=== PATIENT | female | born 1955 | race Caucasian/White ===

== ENCOUNTER 2017-06-20 17:05 | Emergency (ER) | payer BC, SELFPAY ==
[2017-06-20] MEDS ORDERED: cloNIDine 0.1 MG TAB ONE (17:38)
[2017-06-20] MEDS ORDERED: Metoprolol Tartrate 50 MG TAB ONE (18:22)
[2017-06-20] MEDS ORDERED: Amlodipine 5 MG TAB ONE (18:22)
== END 2017-06-20 19:10 | disposition home or self-care (01) ==
LOC: MADERS 17:05
DX: I10 Essential (primary) hypertension (principal); E78.5 Hyperlipidemia, unspecified; F32.9 Major depressive disorder, single episode, unspecified; Z79.899 Other long term (current) drug therapy
CPT/HCPCS: 99283

== ENCOUNTER 2017-07-18 14:30 | Emergency (ER) | payer SELFPAY ==
[~2017-07-18 14:30] MED LIST: Sodium Chloride 0.9% 1,000 ML BAG ONE
[2017-07-18 14:57] LABS: ALT (SGPT) 21 U/L (8-55); AST (SGOT) 23 U/L (5-34); Albumin 3.9 g/dL (3.4-4.8); Alkaline Phosphatase 81 U/L (40-150); Anion Gap 17 mmol/L (10-20); BUN (Urea Nitrogen) 11 mg/dL (9.8-20.1); Bilirubin, Total 0.2 mg/dL (0.2-1.2); CK (CPK) 189 U/L (29-168); Calc. Creatinine Clearance 0 mL/min (70-130); Calcium 8.9 mg/dL (7.8-10.44); Carbon Dioxide 20 mmol/L (23-31); Chloride 105 mmol/L (98-107); Estimated GFR-MDRD 61; Globulin 3.4 g/dL (2.4-3.5); Glucose 110 mg/dL (80-115); Lipase 59 U/L (8-78); Potassium 3.8 mmol/L (3.5-5.1); Protein, Total 7.3 g/dL (6.0-8.3); Sodium 138 mmol/L (136-145)
[2017-07-18 15:00] LABS: CKMB 1.7 ng/mL (0-6.6); Troponin I Less than 0.010 ng/mL (< 0.028)
--- NOTE | 2017-07-18 15:00 | RAD ---
CHEST 2 VIEWS: Date: 07/18/17 HISTORY: Cough. COMPARISON: 12/27/10. FINDINGS: Cardiac silhouette and pulmonary vasculature are unremarkable. Mediastinum is midline. Calcified gran ulomata are consistent with healed granulomatous disease. There is no confluent air space consolidati on, pneumothorax, or pleural fluid evident. Metallic anchor overlies the right humeral head. monitor tech leads overlie the chest. IMPRESSION: No active cardiopulmonary abnormalities are demonstrated. POS: [facility]
[2017-07-18 15:23] LABS: Hemoglobin 15.1 g/dL (12.0-16.0); Mean Corpuscular Hemoglobin 30.2 pg (27.0-31.0); Mean Corpuscular Volume 91.5 fl (81.0-99.0); Mean Platelet Volume 6.7 fL (7.4-10.4); Platelet Count 240 thou/uL (130-400); RBC Distribution Width 11.8 % (11.5-14.5); Red Blood Cell (RBC) Count 4.99 mill/uL (4.20-5.40); White Blood Cell (WBC) Count 4.9 thou/uL (4.8-10.8)
[2017-07-18 15:24] LABS: Band 1 % (5-11); Eosinophils 1 % (0-10); Lymphocytes 19 % (21-51); MDiff Complete? YES; Monocytes 13 % (0-10); Neutrophil 42 % (42-75); PLT Morphology Comment Appears Adequate; RBC Morphology Normal; Reactive Lymphocytes 24 % (0-10)
[2017-07-18 16:42] LABS: Bilirubin Negative (Negative); Blood, Urine Negative (Negative); Clarity Clear (Clear); Glucose, Urine (Dipstick) Negative (Negative); Leukocyte Negative (Negative); Nitrite Negative (Negative); Protein, Urine (Dipstick) Negative (Neg-Trace); Specific Gravity, Urine 1.015 (1.005-1.030); Urobilinogen 0.2 mg/dL (0.2-1.0)
== END 2017-07-18 16:31 | disposition home or self-care (01) ==
LOC: MADERS 14:30
DX: J18.9 Pneumonia, unspecified organism (principal); E86.0 Dehydration; R55 Syncope and collapse; I10 Essential (primary) hypertension; F32.9 Major depressive disorder, single episode, unspecified; Z79.82 Long term (current) use of aspirin; Z79.51 Long term (current) use of inhaled steroids; Z79.899 Other long term (current) drug therapy
CPT/HCPCS: 71046; 80053; 81003; 82550; 82553; 83690; 83880; 84484; 85025; 93005; 94760; 96360; J7050

== ENCOUNTER 2018-06-02 08:18 | Outpatient (CLI) | payer OTHER | END 2018-06-02 08:19 | disposition home or self-care (01) | LOC: MADEKG 08:18 | PROVIDERS: ATTEND Family Medicine | DX: I11.0 Hypertensive heart disease with heart failure (principal) | CPT/HCPCS: 93005 ==

== ENCOUNTER 2018-07-13 11:08 | Emergency (ER) | payer OTHER | END 2018-07-13 12:00 | disposition home or self-care (01) | LOC: MADERS 11:08 | DX: K52.1 Toxic gastroenteritis and colitis (principal); T50.905A Adverse effect of unspecified drugs, medicaments and biological substances, initial encounter; I10 Essential (primary) hypertension; E78.00 Pure hypercholesterolemia, unspecified; Z79.82 Long term (current) use of aspirin; Z79.899 Other long term (current) drug therapy | CPT/HCPCS: 99283 ==

== ENCOUNTER 2019-06-05 17:44 | Outpatient (CLI) | payer OTHER ==
--- NOTE | 2019-06-05 19:38 | RAD ---
Exam: 3 view sacroiliac joints HISTORY: Pain. FINDINGS: Patent and symmetric sacroiliac joints. No evidence of fractures. There is degenerative alvaro nge at the lumbosacral junction. Sclerosis in the left aspect of the sacrum likely representing bone island. Preservation of visualized hip joint spaces. IMPRESSION: As above Transcribed Date/Time: 06/05/2019 7:44 PM
--- NOTE | 2019-06-05 19:42 | RAD ---
Exam: 3 views lumbar spine HISTORY: Back pain. Sprain. Initial encounter FINDINGS: 5 lumbar type vertebrae. Vertebral body height is maintained. No fracture. No spondylolisth esis or spondylolysis. Moderate loss of disc space height at L2-L3. Severe loss of disc space height at L4-L5. Vacuum disc phenomenon at the lumbosacral junction. Atherosclerosis of a nonaneurysm al aorta Degenerative changes in the distal thoracic spine. IMPRESSION: Multilevel degenerative changes. Transcribed Date/Time: 06/05/2019 7:45 PM
== END 2019-06-05 17:45 | disposition home or self-care (01) ==
LOC: MADRAD 17:44
PROVIDERS: ATTEND Family Medicine
DX: S33.9XXA Sprain of unspecified parts of lumbar spine and pelvis, initial encounter (principal); M47.816 Spondylosis without myelopathy or radiculopathy, lumbar region; M47.817 Spondylosis without myelopathy or radiculopathy, lumbosacral region
CPT/HCPCS: 72100; 72202

== ENCOUNTER 2019-11-17 11:15 | Emergency (ER) | payer OTHER | END 2019-11-17 11:54 | disposition home or self-care (01) | LOC: MADERS 11:15 | DX: R55 Syncope and collapse (principal); R53.1 Weakness; I10 Essential (primary) hypertension; K21.9 Gastro-esophageal reflux disease without esophagitis; E78.00 Pure hypercholesterolemia, unspecified; F41.9 Anxiety disorder, unspecified; F32.9 Major depressive disorder, single episode, unspecified; Z79.82 Long term (current) use of aspirin; Z79.899 Other long term (current) drug therapy | CPT/HCPCS: 36416; 93005 ==

== ENCOUNTER 2019-12-16 18:26 | Emergency (ER) | payer OTHER ==
[2019-12-16 19:11] LABS: #Basophils 0.1 thou/uL (0.0-0.2); #Eosinphils 0.1 thou/uL (0.0-0.7); #Lymphocytes 3.3 thou/uL (1.20-3.40); #Monocytes 0.9 thou/uL (0.11-0.59); #Neutrophils 4.4 thou/uL (1.40-6.50); %Basophils 0.8 % (0.0-1.0); %Eosinophils 1.7 % (0.0-10.0); %Monocytes 10.6 % (0.0-10.0); %Neutrophils 49.9 % (42.0-75.0); Hemoglobin 14.3 g/dL (12.0-16.0); Mean Corpuscular HGB CONC 31.8 g/dL (32.0-36.0); Mean Corpuscular Hemoglobin 29.5 pg (27.0-31.0); Mean Corpuscular Volume 92.7 fL (78.0-98.0); Mean Platelet Volume 6.3 fL (7.4-10.4); Platelet Count 334 thou/uL (130-400); RBC Distribution Width 12.1 % (11.5-14.5); Red Blood Cell (RBC) Count 4.85 mill/uL (4.20-5.40); White Blood Cell (WBC) Count 8.9 thou/uL (4.8-10.8)
[2019-12-16 19:24] LABS: ALT (SGPT) 27 U/L (8-55); AST (SGOT) 27 U/L (5-34); Albumin 4.4 g/dL (3.4-4.8); Alkaline Phosphatase 72 U/L (40-110); Anion Gap 19 mmol/L (10-20); BUN (Urea Nitrogen) 16 mg/dL (9.8-20.1); Bilirubin, Total 0.2 mg/dL (0.2-1.2); Calc. Creatinine Clearance 0 mL/min (70-130); Calcium 9.3 mg/dL (7.8-10.44); Carbon Dioxide 23 mmol/L (23-31); Chloride 102 mmol/L (98-107); Estimated GFR-MDRD 50; Globulin 2.9 g/dL (2.4-3.5); Glucose 136 mg/dL (80-115); Potassium 3.7 mmol/L (3.5-5.1); Protein, Total 7.3 g/dL (6.0-8.3); Sodium 140 mmol/L (136-145)
--- NOTE | 2019-12-16 19:31 | RAD ---
CHEST ONE VIEW: 12/16/19 INDICATION: Dizziness with sternal chest pain. COMPARISON: Prior exam dated 12/27/10. FINDINGS: The lungs are clear. Heart size is within normal limits. No pleural effusion or pneumothorax is evide nt. There is postprocedural change involving the right shoulder, stable appearing. IMPRESSION: No acute cardiopulmonary abnormality. POS: [facility]
[2019-12-16 19:34] LABS: Bilirubin Negative (Negative); Blood, Urine Negative (Negative); Clarity Clear (Clear); Glucose, Urine (Dipstick) Negative (Negative); Leukocyte Negative (Negative); Nitrite Negative (Negative); Protein, Urine (Dipstick) Negative (Neg-Trace); Urobilinogen 0.2 mg/dL (Less than 2)
[2019-12-16] MEDS ORDERED: Aspirin Chewable 81 MG TAB ONE (20:29)
[2019-12-16] MEDS ORDERED: cloNIDine 0.1mg/24 Hour PATCH ONE (20:39)
[2019-12-16] MEDS ORDERED: cloNIDine 0.1 MG TAB ONE (20:40)
== END 2019-12-16 21:00 | disposition short-term general hospital (02) ==
LOC: MADERS 18:26
DX: R07.9 Chest pain, unspecified (principal); R53.1 Weakness; I10 Essential (primary) hypertension; K21.9 Gastro-esophageal reflux disease without esophagitis; E78.00 Pure hypercholesterolemia, unspecified; F41.9 Anxiety disorder, unspecified; Z79.82 Long term (current) use of aspirin; Z79.899 Other long term (current) drug therapy
CPT/HCPCS: 71045; 80053; 81003; 83880; 84484; 85025; 93005

== ENCOUNTER 2020-06-27 11:38 | Emergency (ER) | payer OTHER ==
[2020-06-27] MEDS ORDERED: Ketorolac Tromethamine 60 MG/2 ML VIAL ONE (12:12)
[2020-06-27 12:21] LABS: Bilirubin Negative (Negative); Blood, Urine Negative (Negative); Glucose, Urine (Dipstick) Negative (Negative); Ketone, Urine Negative (Negative); Leukocyte Negative (Negative); Nitrite Negative (Negative); Protein, Urine (Dipstick) 30 mg/dL (Neg-Trace); Urobilinogen 0.2 mg/dL (Less than 2)
[2020-06-27 12:22] LABS: Clarity Hazy (Clear)
[2020-06-27 12:29] LABS: RBC/HPF 0-3 HPF (0-3); WBC/HPF 0-3 HPF (0-3)
[2020-06-27 12:31] LABS: Bacteria/HPF 1+ HPF (None Seen)
== END 2020-06-27 12:56 | disposition home or self-care (01) ==
LOC: MADERS 11:38
DX: M54.5 Low back pain (principal); I10 Essential (primary) hypertension; K21.9 Gastro-esophageal reflux disease without esophagitis; E78.00 Pure hypercholesterolemia, unspecified; K63.5 Polyp of colon; Z79.82 Long term (current) use of aspirin; Z79.899 Other long term (current) drug therapy
CPT/HCPCS: 81003; 81015; 96372; 99283; J1885

== ENCOUNTER 2020-11-29 12:24 | Emergency (ER) | payer OTHER ==
[2020-11-29] MEDS ORDERED: Ibuprofen 800 MG TAB ONE (13:13)
== END 2020-11-29 13:30 | disposition home or self-care (01) ==
LOC: MADERS 12:24
DX: M79.671 Pain in right foot (principal); I10 Essential (primary) hypertension; K21.9 Gastro-esophageal reflux disease without esophagitis; E78.00 Pure hypercholesterolemia, unspecified; Z79.82 Long term (current) use of aspirin; Z79.899 Other long term (current) drug therapy

== ENCOUNTER 2021-01-10 14:27 | Emergency (ER) | payer OTHER ==
[2021-01-10] MEDS ORDERED: Cephalexin 500 MG CAP ONE (15:04)
[2021-01-10 15:09] LABS: Bilirubin Negative (Negative); Blood, Urine Large (Negative); Clarity Slightly Cloudy (Clear); Glucose, Urine (Dipstick) Negative (Negative); Ketone, Urine Negative (Negative); Leukocyte Trace (Negative); Nitrite Negative (Negative); Protein, Urine (Dipstick) > or equal to 300 mg/dL (Neg-Trace); Urobilinogen 0.2 mg/dL (Less than 2); pH, Urine 5.5 (5.0-9.0)
[2021-01-10 15:11] LABS: Specific Gravity, Urine 1.022 (1.002-1.036)
[2021-01-10 15:23] LABS: Bacteria/HPF Rare-Few HPF (None Seen); RBC/HPF Greater than 50 HPF (0-3)
[2021-01-10 15:46] LABS: #Eosinphils 0.1 thou/uL (0.0-0.7); #Lymphocytes 2.2 thou/uL (1.20-3.40); #Monocytes 0.7 thou/uL (0.11-0.59); #Neutrophils 7.2 thou/uL (1.40-6.50); %Basophils 0.4 % (0.0-1.0); %Eosinophils 0.6 % (0.0-10.0); %Lymphocytes 21.3 % (21.0-51.0); %Neutrophils 70.7 % (42.0-75.0); Mean Corpuscular HGB CONC 32.8 g/dL (32.0-36.0); Mean Corpuscular Volume 91.5 fL (78.0-98.0); Mean Platelet Volume 6.2 fL (7.4-10.4); Platelet Count 321 thou/uL (130-400); RBC Distribution Width 11.8 % (11.5-14.5); Red Blood Cell (RBC) Count 4.68 mill/uL (4.20-5.40); White Blood Cell (WBC) Count 10.2 thou/uL (4.8-10.8)
[2021-01-10 16:04] LABS: ALT (SGPT) 20 U/L (8-55); AST (SGOT) 20 U/L (5-34); Albumin 4.1 g/dL (3.4-4.8); Alkaline Phosphatase 101 U/L (40-110); Anion Gap 15 mmol/L (10-20); BUN (Urea Nitrogen) 19 mg/dL (9.8-20.1); Bilirubin, Total 0.3 mg/dL (0.2-1.2); Calc. Creatinine Clearance 0 mL/min (70-130); Calcium 9.5 mg/dL (7.8-10.44); Carbon Dioxide 25 mmol/L (23-31); Chloride 105 mmol/L (98-107); Glucose 88 mg/dL (80-115); Potassium 3.6 mmol/L (3.5-5.1); Protein, Total 7.1 g/dL (5.8-8.1); Sodium 141 mmol/L (136-145)
== END 2021-01-10 16:30 | disposition home or self-care (01) ==
LOC: MADERS 14:27
DX: N39.0 Urinary tract infection, site not specified (principal); K21.9 Gastro-esophageal reflux disease without esophagitis; E78.00 Pure hypercholesterolemia, unspecified; I10 Essential (primary) hypertension; Z79.82 Long term (current) use of aspirin; Z79.899 Other long term (current) drug therapy
CPT/HCPCS: 36415; 74176; 80053; 81003; 81015; 85025

== ENCOUNTER 2021-01-18 01:46 | Outpatient (CLI) | payer OTHER | END 2021-01-18 01:47 | disposition home or self-care (01) | LOC: MADLAB 01:46 | PROVIDERS: ATTEND Family Medicine | DX: R39.9 Unspecified symptoms and signs involving the genitourinary system (principal) | CPT/HCPCS: 87086 ==

== ENCOUNTER 2021-02-07 14:00 | Outpatient (CLI) | payer OTHER | END 2021-02-07 14:01 | disposition home or self-care (01) | LOC: MADRAD 14:00 | PROVIDERS: ATTEND Family Medicine | DX: M54.6 Pain in thoracic spine (principal); M47.814 Spondylosis without myelopathy or radiculopathy, thoracic region; M47.816 Spondylosis without myelopathy or radiculopathy, lumbar region | CPT/HCPCS: 72070; 72100 ==

== ENCOUNTER 2021-05-16 11:16 | Outpatient (CLI) | payer OTHER | END 2021-05-16 11:17 | disposition home or self-care (01) | LOC: MADRAD 11:16 | PROVIDERS: ATTEND Family Medicine | DX: R19.00 Intra-abdominal and pelvic swelling, mass and lump, unspecified site (principal) | CPT/HCPCS: 71046 ==

== ENCOUNTER 2021-06-15 09:03 | Outpatient (CLI) | payer MEDICARE | END 2021-06-15 09:04 | disposition home or self-care (01) | LOC: MADLAB 09:03 → MADULT 09:04 | PROVIDERS: ATTEND Family Medicine | DX: R19.00 Intra-abdominal and pelvic swelling, mass and lump, unspecified site (principal) | CPT/HCPCS: 76999 ==

== ENCOUNTER 2021-10-17 12:07 | Emergency (ER) | payer MEDICARE, BC ==
[2021-10-17] MEDS ORDERED: Mag-Al Plus 1200 MG/1200 MG/120 MG/30 ML UDCUP ONE (12:48)
[2021-10-17] MEDS ORDERED: Lidocaine Viscous Sol 2% 15 ml UD Cup ONE (12:48)
[2021-10-17 12:51] LABS: #Eosinphils 0.1 thou/uL (0.0-0.7); #Lymphocytes 1.9 thou/uL (1.20-3.40); #Monocytes 0.4 thou/uL (0.11-0.59); #Neutrophils 3.1 thou/uL (1.40-6.50); %Basophils 0.6 % (0.0-1.0); %Eosinophils 1.6 % (0.0-10.0); %Lymphocytes 33.8 % (21.0-51.0); %Monocytes 7.1 % (0.0-10.0); %Neutrophils 56.9 % (42.0-75.0); Hemoglobin 13.8 g/dL (12.0-16.0); Mean Corpuscular HGB CONC 31.5 g/dL (32.0-36.0); Mean Corpuscular Hemoglobin 29.9 pg (27.0-31.0); Mean Platelet Volume 7.1 fL (7.4-10.4); Platelet Count 295 thou/uL (130-400); RBC Distribution Width 12.2 % (11.5-14.5); Red Blood Cell (RBC) Count 4.62 mill/uL (4.20-5.40); White Blood Cell (WBC) Count 5.5 thou/uL (4.8-10.8)
[2021-10-17 13:06] LABS: Base Excess-Venous 1.4 mmol/L (-2.0 to 3.0); Bicarbonate (HCO3v) 27.4 mmol/L (22.0-28.0); CO2 Tension (PvCO2) 47.4 mmHg (42.0-51.0); Calcium, Ionized 1.18 mmol/L (1.15-1.33); Chloride 104 mmol/L (98-107); Hemoglobin - Calc 14.5 g/dL (12.0-16.0); Potassium 3.6 mmol/L (3.5-5.1); Sodium 142 mmol/L (138-145); T. Carbon Dioxide 28.8 mmol/L (22.0-28.0); vO2 Saturation-calc 90.1 % (60.0-85.0)
[2021-10-17 13:12] LABS: ALT (SGPT) 20 U/L (8-55); AST (SGOT) 25 U/L (5-34); Albumin 4.2 g/dL (3.4-4.8); Alkaline Phosphatase 64 U/L (40-110); Anion Gap 15 mmol/L (10-20); BUN (Urea Nitrogen) 13 mg/dL (9.8-20.1); Bilirubin, Total 0.6 mg/dL (0.2-1.2); Calc. Creatinine Clearance 0 mL/min (70-130); Calcium 9.5 mg/dL (7.8-10.44); Carbon Dioxide 26 mmol/L (23-31); Chloride 103 mmol/L (98-107); Globulin 2.9 g/dL (2.4-3.5); Glucose 104 mg/dL (80-115); Lipase 39 U/L (8-78); Magnesium 1.8 mg/dL (1.6-2.6); Potassium 3.7 mmol/L (3.5-5.1); Protein, Total 7.1 g/dL (5.8-8.1); Sodium 140 mmol/L (136-145)
== END 2021-10-17 13:50 | disposition home or self-care (01) ==
LOC: MADERS 12:07
DX: K21.9 Gastro-esophageal reflux disease without esophagitis (principal); I10 Essential (primary) hypertension; E78.00 Pure hypercholesterolemia, unspecified; E78.5 Hyperlipidemia, unspecified
CPT/HCPCS: 71045; 80053; 82330; 82803; 83690; 83735; 83880; 84484; 85014; 85025; 93005

== ENCOUNTER 2022-03-08 10:14 | Outpatient (CLI) | payer OTHER ==
[2022-03-08 10:56] LABS: ALT (SGPT) 28 U/L (8-55); AST (SGOT) 25 U/L (5-34); Albumin 4.2 g/dL (3.4-4.8); Alkaline Phosphatase 65 U/L (40-110); Anion Gap 15 mmol/L (10-20); BUN (Urea Nitrogen) 13 mg/dL (9.8-20.1); Bilirubin, Total 0.4 mg/dL (0.2-1.2); Calc. Creatinine Clearance 0 mL/min (70-130); Calcium 9.7 mg/dL (7.8-10.44); Carbon Dioxide 26 mmol/L (23-31); Cardiac Risk 4.2 (Less than 4.5); Chloride 105 mmol/L (98-107); Cholesterol 163 mg/dl (< 200 Desired); Estimated GFR 67; Globulin 2.8 g/dL (2.4-3.5); Glucose 112 mg/dL (80-115); HDL Cholesterol 39 mg/dL (>60 Neg Risk); LDL Cholesterol, Calculated 103 mg/dL; Potassium 4.2 mmol/L (3.5-5.1); Sodium 142 mmol/L (136-145); Triglycerides 104 mg/dL (Less than 150)
== END 2022-03-08 10:15 | disposition home or self-care (01) ==
LOC: MADLABBHPM 10:14 → MADLAB 10:15
PROVIDERS: ATTEND Family Medicine
DX: E78.2 Mixed hyperlipidemia (principal); I10 Essential (primary) hypertension
CPT/HCPCS: 80053; 80061

== ENCOUNTER 2022-06-03 08:56 | Emergency (ER) | payer SELFPAY ==
[2022-06-03] MEDS ORDERED: Sodium Chloride 0.9% 1,000 ML ONE (09:32)
[2022-06-03] MEDS ORDERED: Ketorolac Tromethamine 30 MG/ML VIAL ONE (09:32)
[2022-06-03 09:51] LABS: Bilirubin Negative (Negative); Blood, Urine Negative (Negative); Clarity Clear (Clear); Glucose, Urine (Dipstick) Negative (Negative); Ketone, Urine Negative (Negative); Leukocyte Negative (Negative); Nitrite Negative (Negative); Protein, Urine (Dipstick) Negative (Neg-Trace); Urobilinogen 0.2 mg/dL (Less than 2); pH, Urine 6.5 (5.0-9.0)
[2022-06-03 10:30] LABS: #Basophils 0.1 thou/uL (0.0-0.2); #Eosinphils 0.1 thou/uL (0.0-0.7); #Lymphocytes 1.5 thou/uL (1.20-3.40); #Monocytes 0.9 thou/uL (0.11-0.59); #Neutrophils 9.7 thou/uL (1.40-6.50); %Basophils 0.5 % (0.0-1.0); %Eosinophils 0.6 % (0.0-10.0); %Lymphocytes 12.1 % (21.0-51.0); %Monocytes 7.4 % (0.0-10.0); %Neutrophils 79.4 % (42.0-75.0); Hemoglobin 14.5 g/dL (12.0-16.0); Mean Corpuscular HGB CONC 33.6 g/dL (32.0-36.0); Mean Corpuscular Hemoglobin 30.1 pg (27.0-31.0); Mean Corpuscular Volume 89.7 fl (78.0-98.0); Mean Platelet Volume 5.7 fL (7.4-10.4); Platelet Count 351 10x3/uL (130-400); RBC Distribution Width 11.8 % (11.5-14.5); Red Blood Cell (RBC) Count 4.82 mill/uL (4.20-5.40); White Blood Cell (WBC) Count 12.2 10x3/uL (4.8-10.8)
[2022-06-03 10:50] LABS: ALT (SGPT) 20 U/L (8-55); AST (SGOT) 17 U/L (5-34); Alkaline Phosphatase 83 U/L (40-110); Anion Gap 14 mmol/L (10-20); BUN (Urea Nitrogen) 12 mg/dL (9.8-20.1); Bilirubin, Total 0.7 mg/dL (0.2-1.2); Calc. Creatinine Clearance 0 mL/min (70-130); Calcium 9.4 mg/dL (7.8-10.44); Carbon Dioxide 24 mmol/L (23-31); Chloride 105 mmol/L (98-107); Estimated GFR 76; Globulin 2.9 g/dL (2.4-3.5); Glucose 108 mg/dL (80-115); Potassium 3.6 mmol/L (3.5-5.1); Protein, Total 6.9 g/dL (5.8-8.1); Sodium 139 mmol/L (136-145)
== END 2022-06-03 11:25 | disposition home or self-care (01) ==
LOC: MADERS 08:56
DX: K57.92 Diverticulitis of intestine, part unspecified, without perforation or abscess without bleeding (principal); K21.9 Gastro-esophageal reflux disease without esophagitis; I10 Essential (primary) hypertension; E78.00 Pure hypercholesterolemia, unspecified
CPT/HCPCS: 74176; 80053; 81003; 85025; 96374; J1885; J7050

== ENCOUNTER 2022-08-29 12:45 | Outpatient (CLI) | payer BC, MEDICARE | END 2022-08-29 12:46 | disposition home or self-care (01) | LOC: MADRAD 12:45 | PROVIDERS: ATTEND Internal Medicine | DX: J34.2 Deviated nasal septum (principal) | CPT/HCPCS: 70220 ==

== ENCOUNTER 2023-06-13 12:17 | Emergency (ER) | payer BC, OTHER ==
[2023-06-13] MEDS ORDERED: Sodium Chloride 0.9% 1,000 ML ONE (14:16)
[2023-06-13 14:38] LABS: #Basophils 0.1 thou/uL (0.0-0.2); #Eosinphils 0.1 thou/uL (0.0-0.7); #Lymphocytes 1.3 thou/uL (1.20-3.40); #Monocytes 1.1 thou/uL (0.11-0.59); #Neutrophils 14.4 thou/uL (1.40-6.50); %Basophils 0.4 % (0.0-1.0); %Eosinophils 0.4 % (0.0-10.0); %Lymphocytes 7.6 % (21.0-51.0); %Monocytes 6.2 % (0.0-10.0); %Neutrophils 85.3 % (42.0-75.0); Hematocrit 42.4 % (36.0-47.0); Hemoglobin 14.2 g/dL (12.0-16.0); Mean Corpuscular HGB CONC 33.4 g/dL (32.0-36.0); Mean Corpuscular Hemoglobin 30.7 pg (27.0-31.0); Mean Corpuscular Volume 91.7 fl (78.0-98.0); Mean Platelet Volume 7.1 fL (7.4-10.4); Platelet Count 282 10x3/uL (130-400); RBC Distribution Width 12.5 % (11.5-14.5); Red Blood Cell (RBC) Count 4.62 mill/uL (4.20-5.40); White Blood Cell (WBC) Count 16.9 10x3/uL (4.8-10.8)
[2023-06-13 14:38] LABS: Bilirubin Small (Negative); Blood, Urine Negative (Negative); Clarity Clear (Clear); Glucose, Urine (Dipstick) Negative (Negative); Ketone, Urine Trace mg/dL (Negative); Leukocyte Negative (Negative); Nitrite Negative (Negative); Protein, Urine (Dipstick) 100 mg/dL (Neg-Trace); Specific Gravity, Urine 1.025 (1.005-1.030); pH, Urine 5.5 (5.0-9.0)
[2023-06-13 14:40] LABS: ALT (SGPT) 20 U/L (8-55); AST (SGOT) 19 U/L (5-34); Albumin 4.1 g/dL (3.4-4.8); Alkaline Phosphatase 83 U/L (40-110); Anion Gap 16 mmol/L (10-20); BUN (Urea Nitrogen) 14 mg/dL (9.8-20.1); Bilirubin, Total 0.6 mg/dL (0.2-1.2); Calc. Creatinine Clearance 0 mL/min (70-130); Calcium 8.9 mg/dL (7.8-10.44); Carbon Dioxide 23 mmol/L (23-31); Chloride 99 mmol/L (98-107); Estimated GFR 50; Globulin 3.3 g/dL (2.4-3.5); Glucose 111 mg/dL (80-115); Lipase 19 U/L (8-78); Potassium 3.4 mmol/L (3.5-5.1); Protein, Total 7.4 g/dL (5.8-8.1); Sodium 135 mmol/L (136-145); Troponin I Less than 0.010 ng/mL (< 0.028)
[2023-06-13 14:48] LABS: Bacteria/HPF Rare-Few HPF (None Seen); CAUTI Indications for Culture Pelvic or flank pain; Mucous/LPF 2+ LPF (<2+); RBC/HPF None Seen HPF (0-3); Urine Culture Reflex No No; WBC/HPF None Seen HPF (0-3)
== END 2023-06-13 15:40 | disposition home or self-care (01) ==
LOC: MADERS 12:17
DX: E86.0 Dehydration (principal); A08.4 Viral intestinal infection, unspecified; R55 Syncope and collapse; I10 Essential (primary) hypertension; E78.5 Hyperlipidemia, unspecified; K21.9 Gastro-esophageal reflux disease without esophagitis; Z87.891 Personal history of nicotine dependence; Z79.899 Other long term (current) drug therapy
CPT/HCPCS: 71046; 80053; 81001; 83690; 84484; 85025; 93005; 96360; J7050

== ENCOUNTER 2023-07-17 12:48 | Emergency (ER) | payer BC | END 2023-07-17 13:49 | disposition home or self-care (01) | LOC: MADERS 12:48 | DX: J01.00 Acute maxillary sinusitis, unspecified (principal); J06.9 Acute upper respiratory infection, unspecified; I10 Essential (primary) hypertension; Z87.891 Personal history of nicotine dependence | CPT/HCPCS: 87804; 99283 ==

== ENCOUNTER 2024-01-30 16:44 | Outpatient (CLI) | payer BC, MEDICARE | END 2024-01-30 16:45 | disposition home or self-care (01) | LOC: MADRAD 16:44 | PROVIDERS: ATTEND Family Medicine | DX: M25.512 Pain in left shoulder (principal); R05.3 Chronic cough | CPT/HCPCS: 71046 ==

== ENCOUNTER 2024-05-04 08:11 | Emergency (ER) | payer BC, MEDICARE ==
[2024-05-04] MEDS ORDERED: Triamcinolone 40 MG/ML VIAL ONE (08:30)
== END 2024-05-04 09:18 | disposition home or self-care (01) ==
LOC: MADERS 08:11
DX: J01.40 Acute pansinusitis, unspecified (principal); I10 Essential (primary) hypertension; E78.5 Hyperlipidemia, unspecified; K21.9 Gastro-esophageal reflux disease without esophagitis; Z87.891 Personal history of nicotine dependence; Z79.899 Other long term (current) drug therapy
CPT/HCPCS: 87081; 87400; 87426; 87430; 96372; 99283; J3301

== ENCOUNTER 2024-06-22 10:37 | Emergency (ER) | payer BC, MEDICARE ==
[2024-06-22] MEDS ORDERED: Dexamethasone 10 MG/ML VIAL ONE (11:59)
[2024-06-22] MEDS ORDERED: Amoxicillin/Potassium Clav 875 MG TAB ONE (11:59)
== END 2024-06-22 12:26 | disposition home or self-care (01) ==
LOC: MADERS 10:37
DX: J01.90 Acute sinusitis, unspecified (principal); E78.5 Hyperlipidemia, unspecified; I10 Essential (primary) hypertension; Z87.891 Personal history of nicotine dependence
CPT/HCPCS: 96372; 99283; J1100

== ENCOUNTER 2025-02-08 14:59 | Emergency (ER) | payer BC, MEDICARE ==
[2025-02-08] MEDS ORDERED: Dexamethasone 10 MG/ML VIAL ONE (15:15)
== END 2025-02-08 15:30 | disposition home or self-care (01) ==
LOC: MADERS 14:59
DX: J01.90 Acute sinusitis, unspecified (principal); K21.9 Gastro-esophageal reflux disease without esophagitis; I10 Essential (primary) hypertension; E78.5 Hyperlipidemia, unspecified; Z79.899 Other long term (current) drug therapy; Z87.891 Personal history of nicotine dependence
CPT/HCPCS: 96372; 99283; J1100

== ENCOUNTER 2025-04-17 18:41 | Emergency (ER) | payer BC, MEDICARE ==
[2025-04-17 19:12] LABS: Glucose, Urine (Dipstick) Negative (Negative); Leukocyte Negative (Negative); Protein, Urine (Dipstick) Negative (Neg-Trace); Specific Gravity, Urine 1.020 (1.005-1.030)
[2025-04-17 19:17] LABS: Bacteria/HPF Rare-Few HPF (None Seen); CAUTI Indications for Culture Pelvic or flank pain; RBC/HPF 0-3 HPF (0-3); WBC/HPF 0-3 HPF (0-3)
[2025-04-17 19:18] LABS: Urine Culture Reflex No No
== END 2025-04-17 19:29 | disposition home or self-care (01) ==
LOC: MADERS 18:41
DX: M54.50 Low back pain, unspecified (principal); K21.9 Gastro-esophageal reflux disease without esophagitis; I10 Essential (primary) hypertension; E78.5 Hyperlipidemia, unspecified; Z87.891 Personal history of nicotine dependence; Z79.899 Other long term (current) drug therapy
CPT/HCPCS: 81001; 99283

== ENCOUNTER 2025-06-24 12:06 | Outpatient (CLI) | payer BC, MEDICARE | END 2025-06-24 12:07 | disposition home or self-care (01) | LOC: MADRAD 12:06 | PROVIDERS: ATTEND Family Medicine | DX: I10 Essential (primary) hypertension (principal); E11.9 Type 2 diabetes mellitus without complications | CPT/HCPCS: 71046 ==